=== PATIENT | female | born 2000 | race Caucasian/White ===

== ENCOUNTER → 2024-01-22 06:19 | Day surgery (SDC) | payer OTHER, SELFPAY | LOC: GI 06:19 | PROVIDERS: ATTENDING PHYSICIAN Internal Medicine | DX: R13.10 Dysphagia, unspecified (principal); R11.2 Nausea with vomiting, unspecified; K44.9 Diaphragmatic hernia without obstruction or gangrene; K22.2 Esophageal obstruction; K22.89 Other specified disease of esophagus; K20.90 Esophagitis, unspecified without bleeding; K29.70 Gastritis, unspecified, without bleeding | CPT/HCPCS: 43239; 88305; 88342 ==

== ENCOUNTER 2024-04-16 08:49 | Emergency (ER) | payer BC, SELFPAY ==
[2024-04-16 09:09] VITALS: BP 129/82
--- NOTE | 2024-04-16 11:07 | ED.GENMED ---
History of Present Illness
General
Chief Complaint: Swelling
Source: patient
Exam Limitations: none
Time Seen by Provider: 04/16/24 10:36
History of Present Illness
History of Present Illness:
23-year-old female presents with swelling of bilateral eyelids onset yesterday worsening today. She has trouble opening her eyes. She states it is itchy and burning. When she is able to open her eyes her vision is fine. No sore throat no
shortness of breath or chest pain. No rash otherwise. This has been happening intermittently since about a year ago. She tried Benadryl last night with minimal relief. No other complaints at this time. She does not wear make-up. She denies any
new detergents or soaps.
Past History
Past History
ED Past Medical History: Asthma
ED Past Surgical History: Cholecystectomy
Social History
Living: with family
Phy Exam
Physical Exam
Physical Exam:
General: Well-appearing female no acute respiratory distress
HEENT: Normocephalic bilateral upper and lower eyelid swelling. Pupils equal round reactive to light posterior pharynx is patent no trismus or drooling no stridor neck is supple
Heart: Regular rate and rhythm
Lungs: Clear no wheeze
Course
Orders/Labs/Results
Orders:
Orders
04/16/24 11:06
Dexamethasone Sod Phosphate [Decadron] 10 mg IV NOW STA
Diphenhydramine [Benadryl] 25 mg IV NOW STA
Famotidine [Pepcid] 20 mg IV NOW STA
Vital Signs
Initial and Last Documented VS:
Initial Vital Signs
Temp Pulse Resp BP Pulse Ox
98.6 F 109 18 129/82 100
04/16/24 09:09 04/16/24 09:09 04/16/24 09:09 04/16/24 09:09 04/16/24 09:09
Last Documented Vital Signs
Temp Pulse Resp BP Pulse Ox
98.6 F 77 18 118/76 99
04/16/24 09:09 04/16/24 12:00 04/16/24 09:09 04/16/24 11:35 04/16/24 12:00
MDM/Problems Addressed
Differential Diagnosis Includes:
Bilateral eyelid swelling. Likely allergy mediated. No signs of cellulitis. Will try Decadron Benadryl Pepcid.
*Critical Care Note
Total Time (30-74mins, 75-104mins- exclusive of procedures): Not Applicable
Update Note
Update Note:
Patient reexamined with some improvement of the swelling of the eyes. No respiratory distress upon reassessment. I suspect underlying allergy mediated process. Recommended continued warm compresses and will continue steroids over the next several
days. 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 Stable for discharge
ED Attending Note
-
Portions of this chart may have been created with voice recognition software.� Occasional wrong word or��sound alike� substitutions may have occurred due to the inherent limitations of voice recognition software.
Discharge Plan
Departure
Patient Disposition: Home (Routine Discharge)
Date of Disposition: 04/16/24
Time of Disposition: 13:16
Patient with high blood pressure during this ER visit?: No
Discharge Problem:
Allergic reaction
Instructions: Allergic reaction - ED discharge instructions
Prescriptions:
New
prednisone 10 mg Tablet
See Rx Instructions .ROUTE .COMPLEX Qty: 30 0RF
Rx Instructions:
Take By Mouth:
40 mg daily x3 days, 30 mg daily x3 days,
20 mg daily x3 days, 10 mg daily x3 days.
No Action
albuterol sulfate [Proventil HFA] 90 MCG/PUFF HFA aerosol inhaler
1 puff inhalation PRN PRN (Reason: asthma)
Referrals:
Jennifer Francisco CRNP [Family Provider] -
Activity Restrictions/Additional Instructions:
Continue with cold compresses. Continue with steroid medicine and Benadryl. Return if worse otherwise follow-up with dermatology as planned
Interventions
Interventions:
*Risk Screen - Suicide Last Done: 04/16/24 09:09
*General Assessment Last Done: 04/16/24 09:09
*Neglect/Abuse Screening Last Done: 04/16/24 09:09
*ED COVID-19 Vaccine History Last Done: 04/16/24 09:09
ED- Cardiac Assessment Last Done: 04/16/24 11:53
ED- Pulmonary Assessment Last Done: 04/16/24 11:53
ED-Skin Assessment Last Done: 04/16/24 11:53
Discharge Date and Time
Print Language: PALAUAN
[2024-04-16] MEDS: DECADRON 10 MG IV (11:28)
[2024-04-16] MEDS: PEPCID 20 MG IV (11:29)
[2024-04-16] MEDS: BENADRYL 25 MG IV (11:31)
[2024-04-16 11:35] VITALS: BP 118/76
[2024-04-16 12:00] VITALS: BP 104/63
[2024-04-16 13:00] VITALS: BP 103/64
== END 2024-04-16 12:30 | disposition home or self-care (01) ==
LOC: EMR 08:49
PROVIDERS: EMERGENCY PHYSICIAN Student in an Organized Health Care Education/Training Program; FAMILY PHYSICIAN Nurse Practitioner Family
DX: T78.40XA Allergy, unspecified, initial encounter (principal); R20.8 Other disturbances of skin sensation; R22.0 Localized swelling, mass and lump, head; L29.9 Pruritus, unspecified; J45.909 Unspecified asthma, uncomplicated; Z90.49 Acquired absence of other specified parts of digestive tract; Z91.010 Allergy to peanuts; Z91.013 Allergy to seafood
CPT/HCPCS: 99284; 96374; 96375 ×2

== ENCOUNTER 2024-06-17 06:25 | Day surgery (SDC) | payer BC, SELFPAY | END 2024-06-17 10:17 | disposition home or self-care (01) | LOC: GI 06:25 | PROVIDERS: ATTENDING PHYSICIAN Internal Medicine | DX: K21.00 Gastro-esophageal reflux disease with esophagitis, without bleeding (principal); R13.14 Dysphagia, pharyngoesophageal phase; K44.9 Diaphragmatic hernia without obstruction or gangrene; K31.7 Polyp of stomach and duodenum; K22.89 Other specified disease of esophagus | CPT/HCPCS: 43239; 88305 ==